=== PATIENT | male | born 1950 | race African-American/Black ===

== ENCOUNTER 2016-08-01 18:24 | Inpatient (IN) | payer OTHER ==
[~2016-08-01] VITALS: Ht 180.3 cm; Wt 59.0 kg
[~2016-08-01 18:24] MED LIST: ASPIR 8181 M1 PO; ASPIR-LOW81 MG PO; ATORVASTATIN CA40 MG PO; BACTRIM,SEPT1 TABLET PO; BAYER CHEWABLE81 MG PO; CALCIUM + D3 E1 EACH PO; CARVEDILOL6.25 MG PO; CASODEX50 MG PO; CIPROFLOXACIN500 M1 PO; COLACE100 MG PO; COREG3.125 M1 PO; COREG6.25 M1 PO; CRESTOR20 MG PO; DOCUSATE SODIU100 MG PO; DURAGESIC25 MCG TD; ENDOCET 5-3251 EACH PO; FAMOTIDINE20 MG PO; FENTANYL1 EAC5 TD; FOLIC ACID1 MG PO; FUROSEMIDE40 MG PO; GABAPENTIN600 MG PO; GLUCOTROL XL10 MG PO; GLUCOTROL5 MG PO; KLOR-CON 1010 ME1 PO; LASIX20 MG PO; LASIX40 MG PO; LEVEMIR FL100 UNIT/1 SC; LEVEMIR100 UNIT/2 SC; LIPITOR40 MG PO; LISINOPRIL2.5 MG PO; MORPHINE SULFAT15 M1 PO; MORPHINE SULFAT15 MG PO; NEURONTIN300 MG PO; NEURONTIN600 MG PO; OXAYDO5 MG PO; OXYCODONE HCL5 MG PO; OXYCODONE-ACET1 EACH PO; PANTOPRAZOLE SO40 MG PO; PERCOCET 5/31 TABLET PO; PREDNISONE5 MG PO; PROSCAR5 MG PO; PROSTATE HEALT1 EAC1 PO; PROTONIX40 MG PO; SANTYL30 GM TP; VITAMIN E100 UNIT PO; ZESTRIL2.5 MG PO
[2016-08-01 19:03] LABS: HEMATOCRIT 24.9 % (38.0-50.0); MCH 28.8 PG (29.0-34.0); MCHC 32.5 G/DL (30.0-36.0); MCV 88.6 FL (86-99); MEAN PLAT.VOLUME 9.3 uM^3 (9.0-12.4); PLATELET COUNT 180 K/uL (156-360); RBC DIS.WIDTH-CV 16.5 % (11.8-14.6); RBC DIS.WIDTH-SD 52.1 % (39-53); RED BLOOD COUNT 2.81 M/uL (4.00-5.50); WHITE BLOOD COUNT 5.7 K/uL (4.1-10.2)
[2016-08-01 19:06] LABS: EOSINOPHIL (%) 0.4 % (0-5); IMMATURE GRANULOCYTE (%) 0.5 % (0.0-0.7); IMMATURE GRANULOCYTE COUNT 0.3 K/uL; LYMPHOCYTE COUNT 0.9 K/uL (1.0-2.8); MONOCYTE (%) 10.7 % (3-12); MONOCYTE COUNT 0.6 K/uL (0-0.8); NEUTROPHIL (%) 72.1 % (45-76); NEUTROPHIL COUNT 4.1 K/uL (1.8-6.4)
[2016-08-01 19:12] LABS: CHLORIDE 101 mEq/L (99-109); POTASSIUM 4.8 mEq/L (3.7-5.4); SODIUM 133 mEq/L (136-147)
[2016-08-01 19:13] LABS: GLUCOSE 197 mg/dL (70-99)
[2016-08-01 19:15] LABS: ANION GAP 11 MEQ/L (2-14)
[2016-08-01 19:17] LABS: GFR ESTIMATE (CALCULATED) > 59 mL/min/
[2016-08-01 19:18] LABS: UREA NITROGEN (BUN) 25 mg/dL (9-23)
[2016-08-01 22:40] LABS: ADD MIUA? NO; BILIRUBIN NEGATIVE; BLOOD NEGATIVE; COLOR YELLOW ((YELLOW)); GLUCOSE (STRIP) NEGATIVE; KETONES NEGATIVE; LEUKOCYTES NEGATIVE; NITRITE NEGATIVE; PROTEIN (STRIP) 30; SPECIFIC GRAVITY 1.011 (1.000-1.030); UCUL ADDED? NO; UROBILINOGEN 0.2 MG/DL (0.2-1.0)
[2016-08-01 23:41] LABS: INTER. NORMALIZED RATIO 1.3; PROTHROMBIN TIME 13.2 (9.2-11.2); PTT 34.3 (25-32)
[2016-08-01] MEDS ORDERED: ASPIR 8181 M1 PO (23:59)
[2016-08-02] MEDS ORDERED: XTANDI40 MG PO
[2016-08-02] MEDS ORDERED: PERCOCET 5/31 TABLET PO
[2016-08-02] MEDS ORDERED: FUROSEMIDE40 MG PO (00:01)
[2016-08-02 01:08] VITALS: BP 125/76
[2016-08-02 01:25] VITALS: BP 130/78
[2016-08-02 02:10] VITALS: BP 129/76
[2016-08-02 03:05] VITALS: BP 133/76
[2016-08-02 08:09] LABS: POINT-OF-CARE METER ID UU13113702
[2016-08-02 11:50] LABS: POINT-OF-CARE METER ID UU13113702
[2016-08-02 16:34] LABS: POINT-OF-CARE METER ID UU13113702
[2016-08-02 23:46] VITALS: BP 113/65
[2016-08-03 05:39] LABS: HEMATOCRIT 24.4 % (38.0-50.0); MCH 28.8 PG (29.0-34.0); MCHC 32.8 G/DL (30.0-36.0); MCV 87.8 FL (86-99); RBC DIS.WIDTH-CV 16.4 % (11.8-14.6); RBC DIS.WIDTH-SD 53.1 % (39-53); RED BLOOD COUNT 2.78 M/uL (4.00-5.50); WHITE BLOOD COUNT 4.1 K/uL (4.1-10.2)
[2016-08-03 07:43] LABS: MEAN PLAT.VOLUME 8.3 uM^3 (9.0-12.4)
[2016-08-03 07:49] LABS: PLATELET COUNT 120 K/uL (156-360)
[2016-08-03 08:05] VITALS: BP 103/63
[2016-08-03 10:08] VITALS: BP 107/61
[2016-08-03 10:35] VITALS: BP 103/56
[2016-08-03 11:40] VITALS: BP 104/60
[2016-08-03 11:45] LABS: POINT-OF-CARE METER ID UU13113725
[2016-08-03 12:30] VITALS: BP 123/64
[2016-08-03 16:00] VITALS: BP 131/78
[2016-08-03 16:13] LABS: POINT-OF-CARE METER ID UU13113725
[2016-08-03 21:04] LABS: POINT-OF-CARE METER ID UU13113725
[2016-08-04 01:15] VITALS: BP 125/67
[2016-08-04 08:03] VITALS: BP 131/66
[2016-08-04 11:10] LABS: HEMATOCRIT 28.8 % (38.0-50.0); MCH 28.8 PG (29.0-34.0); MCHC 32.6 G/DL (30.0-36.0); MCV 88.3 FL (86-99); MEAN PLAT.VOLUME 9.2 uM^3 (9.0-12.4); PLATELET COUNT 143 K/uL (156-360); RBC DIS.WIDTH-CV 16.8 % (11.8-14.6); RBC DIS.WIDTH-SD 53.9 % (39-53); RED BLOOD COUNT 3.26 M/uL (4.00-5.50); WHITE BLOOD COUNT 4.5 K/uL (4.1-10.2)
[2016-08-04 11:39] LABS: POINT-OF-CARE METER ID UU13113725
[2016-08-04 11:40] VITALS: BP 130/72
[2016-08-04 16:19] VITALS: BP 120/74
[2016-08-04 22:58] VITALS: BP 142/76
[2016-08-05 09:22] VITALS: BP 110/62
[2016-08-05 10:14] LABS: HEMATOCRIT 27.7 % (38.0-50.0); MCH 28.7 PG (29.0-34.0); MCHC 32.5 G/DL (30.0-36.0); MCV 88.2 FL (86-99); MEAN PLAT.VOLUME 9.3 uM^3 (9.0-12.4); PLATELET COUNT 129 K/uL (156-360); RBC DIS.WIDTH-CV 16.5 % (11.8-14.6); RBC DIS.WIDTH-SD 53.1 % (39-53); RED BLOOD COUNT 3.14 M/uL (4.00-5.50)
[2016-08-05 10:35] LABS: ALKALINE PHOSPHATASE 279 IU/L (3-129); ANION GAP 6 MEQ/L (2-14); CHLORIDE 101 MEQ/L (99-109); GFR ESTIMATE (CALCULATED) > 59 mL/min/; GLUCOSE 147 mg/dL (70-99); POTASSIUM 4.9 MEQ/L (3.7-5.4); SAMPLE HEMOLYSIS CHECK 0; SAMPLE ICTERIC CHECK 0; SAMPLE LIPEMIA CHECK 0; SODIUM 132 MEQ/L (136-147); TOTAL BILIRUBIN 0.7 MG/DL (0.0-1.0); UREA NITROGEN (BUN) 27 mg/dL (9-23)
[2016-08-05 16:30] VITALS: BP 133/76
[2016-08-05 20:41] LABS: POINT-OF-CARE METER ID UU13113725
[2016-08-05 23:17] VITALS: BP 128/65
[2016-08-06 07:17] VITALS: BP 110/61
== END 2016-08-06 12:35 | disposition home health service (06) | DRG 872 ==
LOC: EME 18:24 → EXP 18:24 → EDOF 08-02 00:30 → 5EAST 08-02 00:30
PROVIDERS: Emergency Medicine; Internal Medicine
PROC: 30233N1 Transfusion of Nonautologous Red Blood Cells into Peripheral Vein, Percutaneous Approach (ICD-10-PCS; principal; 2016-08-02)
DX: A41.9 Sepsis, unspecified organism (principal); C79.51 Secondary malignant neoplasm of bone; D61.818 Other pancytopenia; J98.11 Atelectasis; N18.3 Chronic kidney disease, stage 3 (moderate); E11.22 Type 2 diabetes mellitus with diabetic chronic kidney disease; C61 Malignant neoplasm of prostate; I25.10 Atherosclerotic heart disease of native coronary artery without angina pectoris; G62.9 Polyneuropathy, unspecified; G89.4 Chronic pain syndrome; I12.9 Hypertensive chronic kidney disease with stage 1 through stage 4 chronic kidney disease, or unspecified chronic kidney disease; Z95.5 Presence of coronary angioplasty implant and graft; Z83.3 Family history of diabetes mellitus
CPT/HCPCS: 71020; 80048; 80053; 81003; 82948; 83605; 85025; 85027; 85610; 85730; 86850; 86900; 86901; 86920; 87040; 93005; 99281; 99285; J0692; J0744; J1650; J1815; J7030; J7050; P9016

== ENCOUNTER 2016-08-08 18:23 | Inpatient (IN) | payer OTHER ==
[~2016-08-08] VITALS: Ht 172.7 cm; Wt 62.0 kg
[~2016-08-08 18:23] MED LIST changes: +XTANDI40 MG PO
[2016-08-08 18:53] LABS: EOSINOPHIL (%) 0.4 % (0-5); HEMATOCRIT 29.1 % (38.0-50.0); IMMATURE GRANULOCYTE (%) 0.2 % (0.0-0.7); IMMATURE GRANULOCYTE COUNT 0.1 K/uL; LYMPHOCYTE COUNT 0.7 K/uL (1.0-2.8); MCH 28.7 PG (29.0-34.0); MCV 87.1 FL (86-99); MEAN PLAT.VOLUME 9.1 uM^3 (9.0-12.4); MONOCYTE (%) 11.3 % (3-12); MONOCYTE COUNT 0.6 K/uL (0-0.8); NEUTROPHIL (%) 74.9 % (45-76); PLATELET COUNT 137 K/uL (156-360); RBC DIS.WIDTH-SD 50.3 % (39-53); RED BLOOD COUNT 3.34 M/uL (4.00-5.50); WHITE BLOOD COUNT 5.3 K/uL (4.1-10.2)
[2016-08-08 19:05] LABS: INTER. NORMALIZED RATIO 1.2; PTT 30.2 (25-32)
[2016-08-08 19:08] LABS: AMYLASE 44 IU/L (1-118); CHLORIDE 100 mEq/L (99-109); POTASSIUM 4.8 mEq/L (3.7-5.4); SODIUM 132 mEq/L (136-147)
[2016-08-08 19:10] LABS: GLUCOSE 238 mg/dL (70-99)
[2016-08-08 19:12] LABS: ANION GAP 12 MEQ/L (2-14)
[2016-08-08 19:13] LABS: SERUM ETHYL ALCOHOL < 10 mg/dL
[2016-08-08 19:14] LABS: GFR ESTIMATE (CALCULATED) > 59 mL/min/
[2016-08-08 19:15] LABS: UREA NITROGEN (BUN) 26 mg/dL (9-23)
[2016-08-08 19:17] LABS: LIPASE 15 U/L (1.0-51.0)
[2016-08-08 19:19] LABS: TROP-I INTERPRETATION NEGATIVE; TROPONIN-I 0.04 ng/mL (0.0-0.30)
[2016-08-08] MEDS ORDERED: AUGMENTIN875 MG PO (19:21)
[2016-08-08 23:03] VITALS: BP 139/65
[2016-08-09 05:45] LABS: POINT-OF-CARE METER ID UU13113725
[2016-08-09 07:11] VITALS: BP 137/75
[2016-08-09 11:34] LABS: POINT-OF-CARE METER ID UU13113725
[2016-08-09 15:27] VITALS: BP 114/61
[2016-08-09 22:17] VITALS: BP 129/58
[2016-08-10 05:38] LABS: POINT-OF-CARE METER ID UU13113725
[2016-08-10 07:39] VITALS: BP 112/62
== END 2016-08-10 17:15 | disposition home health service (06) | DRG 74 ==
LOC: EME 18:23 → 5EAST 20:30 → EDOF 20:30 → 5EAST 22:30
PROVIDERS: Emergency Medicine; Internal Medicine
DX: E11.40 Type 2 diabetes mellitus with diabetic neuropathy, unspecified (principal); C79.51 Secondary malignant neoplasm of bone; F05 Delirium due to known physiological condition; I50.22 Chronic systolic (congestive) heart failure; C61 Malignant neoplasm of prostate; D63.1 Anemia in chronic kidney disease; N18.3 Chronic kidney disease, stage 3 (moderate); M62.81 Muscle weakness (generalized); E11.22 Type 2 diabetes mellitus with diabetic chronic kidney disease; I12.9 Hypertensive chronic kidney disease with stage 1 through stage 4 chronic kidney disease, or unspecified chronic kidney disease; G89.29 Other chronic pain; R62.7 Adult failure to thrive; R97.21 Rising PSA following treatment for malignant neoplasm of prostate; I25.10 Atherosclerotic heart disease of native coronary artery without angina pectoris; Z91.19 Patient's noncompliance with other medical treatment and regimen; Z68.20 Body mass index [BMI] 20.0-20.9, adult; Z95.5 Presence of coronary angioplasty implant and graft; Z95.0 Presence of cardiac pacemaker
CPT/HCPCS: 36415; 70450; 72129; 72132; 80048; 80053; 81003; 82150; 82607 GA; 82728; 82746 GA; 82948; 83540; 83690; 84466; 84484; 85007; 85025; 85025 91; 85610; 85730; 86850; 86900; 86901; 87086; 93005; 99281; 99285; G0103; G0480; J1815

== ENCOUNTER 2016-10-09 18:38 | Inpatient (IN) | payer OTHER ==
[~2016-10-09] VITALS: Ht 170.2 cm; Wt 63.0 kg
[~2016-10-09 18:38] MED LIST changes: +AUGMENTIN875 MG PO
[2016-10-09 20:20] LABS: EOSINOPHIL (%) 0.3 % (0-5); HEMATOCRIT 23.7 % (38.0-50.0); IMMATURE GRANULOCYTE (%) 0.3 % (0.0-0.7); INSTRUMENT ABS NEUTROPHIL CT 2.9 K/uL; LYMPHOCYTE COUNT 0.6 K/uL (1.0-2.8); MCH 28.5 PG (29.0-34.0); MCHC 32.5 G/DL (30.0-36.0); MCV 87.8 FL (86-99); MEAN PLAT.VOLUME 9.3 uM^3 (9.0-12.4); MONOCYTE COUNT 0.3 K/uL (0-0.8); NEUTROPHIL (%) 76.5 % (45-76); NEUTROPHIL COUNT 2.9 K/uL (1.8-6.4); PLATELET COUNT 127 K/uL (156-360); RBC DIS.WIDTH-CV 16.9 % (11.8-14.6); RBC DIS.WIDTH-SD 53.9 % (39-53); WHITE BLOOD COUNT 3.8 K/uL (4.1-10.2)
[2016-10-09 20:27] LABS: CHLORIDE 96 mEq/L (99-109); POTASSIUM 4.5 mEq/L (3.7-5.4); SODIUM 131 mEq/L (136-147)
[2016-10-09 20:29] LABS: GLUCOSE 198 mg/dL (70-99)
[2016-10-09 20:30] LABS: ANION GAP 13 MEQ/L (2-14)
[2016-10-09 20:31] LABS: TOTAL BILIRUBIN 0.7 mg/dL (0.0-1.0)
[2016-10-09 20:32] LABS: ALKALINE PHOSPHATASE 251 IU/L (3-129)
[2016-10-09 20:33] LABS: GFR ESTIMATE (CALCULATED) > 59 mL/min/
[2016-10-09 20:34] LABS: UREA NITROGEN (BUN) 29 mg/dL (9-23)
[2016-10-09] MEDS ORDERED: ZOFRAN4 MG PO (22:48)
[2016-10-09] MEDS ORDERED: MIRALAX255 GM PO (22:49)
[2016-10-10] VITALS (13 sets, daily range): BP systolic 104–145; BP diastolic 56–94
[2016-10-10 04:33] LABS: ADD MIUA? NO; BILIRUBIN NEGATIVE; BLOOD NEGATIVE; COLOR YELLOW ((YELLOW)); GLUCOSE (STRIP) NEGATIVE; KETONES NEGATIVE; LEUKOCYTES NEGATIVE; NITRITE NEGATIVE; PROTEIN (STRIP) NEGATIVE; UCUL ADDED? NO; UROBILINOGEN 0.2 MG/DL (0.2-1.0)
[2016-10-10 05:56] LABS: ALKALINE PHOSPHATASE 207 IU/L (3-129); ANION GAP 9 MEQ/L (2-14); CHLORIDE 102 MEQ/L (99-109); GFR ESTIMATE (CALCULATED) > 59 mL/min/; GLUCOSE 136 mg/dL (70-99); POTASSIUM 4.2 MEQ/L (3.7-5.4); SAMPLE HEMOLYSIS CHECK 0; SAMPLE ICTERIC CHECK 0; SAMPLE LIPEMIA CHECK 0; SODIUM 134 MEQ/L (136-147); UREA NITROGEN (BUN) 24 mg/dL (9-23)
[2016-10-10 05:59] LABS: TOTAL BILIRUBIN 0.6 MG/DL (0.0-1.0)
[2016-10-10 06:15] LABS: HEMATOCRIT 20.9 % (38.0-50.0); MCH 28.3 PG (29.0-34.0); MCHC 31.6 G/DL (30.0-36.0); MCV 89.7 FL (86-99); MEAN PLAT.VOLUME 9.5 uM^3 (9.0-12.4); PLATELET COUNT 107 K/uL (156-360); RBC DIS.WIDTH-CV 16.9 % (11.8-14.6); RBC DIS.WIDTH-SD 55.2 % (39-53); RED BLOOD COUNT 2.33 M/uL (4.00-5.50); WHITE BLOOD COUNT 2.8 K/uL (4.1-10.2)
[2016-10-10 16:20] LABS: POINT-OF-CARE METER ID UU13113831
[2016-10-10 20:48] LABS: POINT-OF-CARE METER ID UU13113831
[2016-10-11 03:45] VITALS: BP 137/92
[2016-10-11 07:12] LABS: HEMATOCRIT 29.9 % (38.0-50.0); MCH 28.7 PG (29.0-34.0); MCHC 32.4 G/DL (30.0-36.0); MCV 88.5 FL (86-99); MEAN PLAT.VOLUME 9.7 uM^3 (9.0-12.4); PLATELET COUNT 128 K/uL (156-360); RBC DIS.WIDTH-CV 16.7 % (11.8-14.6); RBC DIS.WIDTH-SD 53.5 % (39-53)
[2016-10-11 07:17] LABS: RED BLOOD COUNT 3.38 M/uL (4.00-5.50); WHITE BLOOD COUNT 4.5 K/uL (4.1-10.2)
[2016-10-11 07:18] LABS: ANION GAP 8 MEQ/L (2-14); CHLORIDE 103 MEQ/L (99-109); GFR ESTIMATE (CALCULATED) > 59 mL/min/; POTASSIUM 4.4 MEQ/L (3.7-5.4); SAMPLE HEMOLYSIS CHECK 0; SAMPLE ICTERIC CHECK 0; SAMPLE LIPEMIA CHECK 0; SODIUM 133 MEQ/L (136-147); UREA NITROGEN (BUN) 21 mg/dL (9-23)
[2016-10-11 07:20] LABS: GLUCOSE 49 mg/dL (70-99)
[2016-10-11 07:33] VITALS: BP 131/78
[2016-10-11 08:15] LABS: POINT-OF-CARE METER ID UU13113831
[2016-10-11 10:43] VITALS: BP 115/76
[2016-10-11 12:24] LABS: POINT-OF-CARE METER ID UU13113831
[2016-10-11 16:11] VITALS: BP 134/77
[2016-10-11 17:34] LABS: POINT-OF-CARE METER ID UU13113700
[2016-10-11 19:29] VITALS: BP 142/86
[2016-10-11 22:54] VITALS: BP 119/69
[2016-10-12 04:11] VITALS: BP 107/60
[2016-10-12 07:52] LABS: HEMATOCRIT 29.2 % (38.0-50.0); MCH 28.6 PG (29.0-34.0); MCHC 32.5 G/DL (30.0-36.0); MEAN PLAT.VOLUME 9.5 uM^3 (9.0-12.4); PLATELET COUNT 115 K/uL (156-360); RBC DIS.WIDTH-CV 16.2 % (11.8-14.6); RBC DIS.WIDTH-SD 52.8 % (39-53); RED BLOOD COUNT 3.32 M/uL (4.00-5.50); WHITE BLOOD COUNT 3.8 K/uL (4.1-10.2)
[2016-10-12 08:05] VITALS: BP 116/67
[2016-10-12 08:52] LABS: ANION GAP 9 MEQ/L (2-14); CHLORIDE 99 MEQ/L (99-109); GFR ESTIMATE (CALCULATED) > 59 mL/min/; GLUCOSE 64 mg/dL (70-99); POTASSIUM 4.9 MEQ/L (3.7-5.4); SAMPLE HEMOLYSIS CHECK 0; SAMPLE ICTERIC CHECK 0; SAMPLE LIPEMIA CHECK 0; SODIUM 130 MEQ/L (136-147); UREA NITROGEN (BUN) 23 mg/dL (9-23)
[2016-10-12 09:19] LABS: POINT-OF-CARE METER ID UU13113831
[2016-10-12 10:21] LABS: POINT-OF-CARE METER ID UU13113700
[2016-10-12 11:52] VITALS: BP 116/66
[2016-10-12 12:35] LABS: POINT-OF-CARE METER ID UU13113700
[2016-10-12] MEDS ORDERED: TAMSULOSIN HCL0.4 MG PO (14:44)
== END 2016-10-12 18:16 | disposition home or self-care (01) | DRG 683 ==
LOC: EME 18:38 → EDOF 22:32 → 5WEST 22:32 → EDOF 22:48 → 5WEST 10-10
PROVIDERS: Emergency Medicine; Hospitalist; Internal Medicine; Nurse Practitioner Family
PROC: 30233N1 Transfusion of Nonautologous Red Blood Cells into Peripheral Vein, Percutaneous Approach (ICD-10-PCS; principal; 2016-10-10)
DX: N17.9 Acute kidney failure, unspecified (principal); C79.51 Secondary malignant neoplasm of bone; D61.818 Other pancytopenia; R64 Cachexia; I13.0 Hypertensive heart and chronic kidney disease with heart failure and stage 1 through stage 4 chronic kidney disease, or unspecified chronic kidney disease; E11.22 Type 2 diabetes mellitus with diabetic chronic kidney disease; I50.9 Heart failure, unspecified; E87.1 Hypo-osmolality and hyponatremia; L97.411 Non-pressure chronic ulcer of right heel and midfoot limited to breakdown of skin; C61 Malignant neoplasm of prostate; N18.3 Chronic kidney disease, stage 3 (moderate); E86.0 Dehydration; Z19.2 Hormone resistant malignancy status; D63.8 Anemia in other chronic diseases classified elsewhere; Z91.14 Patient's other noncompliance with medication regimen; R62.7 Adult failure to thrive; I25.10 Atherosclerotic heart disease of native coronary artery without angina pectoris; Z95.1 Presence of aortocoronary bypass graft; W19.XXXA Unspecified fall, initial encounter; M54.5 Low back pain; K21.9 Gastro-esophageal reflux disease without esophagitis; Z95.0 Presence of cardiac pacemaker; Z79.4 Long term (current) use of insulin; R26.2 Difficulty in walking, not elsewhere classified; G89.29 Other chronic pain; E11.621 Type 2 diabetes mellitus with foot ulcer; E11.42 Type 2 diabetes mellitus with diabetic polyneuropathy; N39.490 Overflow incontinence; N39.41 Urge incontinence; Z86.73 Personal history of transient ischemic attack (TIA), and cerebral infarction without residual deficits; I25.2 Old myocardial infarction; Z68.21 Body mass index [BMI] 21.0-21.9, adult
CPT/HCPCS: 71010; 72220; 80048; 80053; 81003; 82948; 83605; 85025; 85027; 86900; 86901; 86920; 97530 GO; 99281; 99285; G0378; G8978 GP CI; G8979 GP CH; J1644; J7030; P9016

== ENCOUNTER 2016-10-19 13:46 | Observation (INO) | payer OTHER ==
[~2016-10-19] VITALS: Ht 170.2 cm; Wt 62.0 kg
[~2016-10-19 13:46] MED LIST changes: +MIRALAX255 GM PO; +TAMSULOSIN HCL0.4 MG PO; +ZOFRAN4 MG PO
[2016-10-19 14:30] LABS: HEMATOCRIT 30.9 % (38.0-50.0); MCH 28.5 PG (29.0-34.0); MEAN PLAT.VOLUME 9.9 uM^3 (9.0-12.4); PLATELET COUNT 111 K/uL (156-360); RBC DIS.WIDTH-CV 16.1 % (11.8-14.6); RBC DIS.WIDTH-SD 52.7 % (39-53); RED BLOOD COUNT 3.47 M/uL (4.00-5.50); WHITE BLOOD COUNT 3.8 K/uL (4.1-10.2)
[2016-10-19 14:40] LABS: CHLORIDE 100 mEq/L (99-109); SODIUM 134 mEq/L (136-147)
[2016-10-19 14:42] LABS: GLUCOSE 131 mg/dL (70-99)
[2016-10-19 14:43] LABS: ANION GAP 13 MEQ/L (2-14)
[2016-10-19 14:46] LABS: GFR ESTIMATE (CALCULATED) > 59 mL/min/
[2016-10-19 14:47] LABS: UREA NITROGEN (BUN) 32 mg/dL (9-23)
[2016-10-19] MEDS ORDERED: TAMSULOSIN HCL0.4 MG PO (15:26)
[2016-10-19 16:48] LABS: EOSINOPHIL (%) 2.5 % (0-5); EOSINOPHIL COUNT 0.1 K/uL (0-0.3); HEMATOCRIT 29.2 % (38.0-50.0); IMMATURE GRANULOCYTE (%) 0.5 % (0.0-0.7); INSTRUMENT ABS NEUTROPHIL CT 2.7 K/uL; LYMPHOCYTE COUNT 0.8 K/uL (1.0-2.8); MCH 28.9 PG (29.0-34.0); MCHC 32.5 G/DL (30.0-36.0); MCV 88.8 FL (86-99); MONOCYTE (%) 8.8 % (3-12); MONOCYTE COUNT 0.4 K/uL (0-0.8); NEUTROPHIL (%) 67.8 % (45-76); NEUTROPHIL COUNT 2.7 K/uL (1.8-6.4); RBC DIS.WIDTH-CV 16.1 % (11.8-14.6); RBC DIS.WIDTH-SD 52.2 % (39-53); RED BLOOD COUNT 3.29 M/uL (4.00-5.50)
[2016-10-19 18:06] LABS: PLAT.SUFFICIENCY DECREASED; PLATELET CLUMPS PRESENT - PLATELET COUNTS APPEARS DECREASED; PLATELET COUNT UNABLE TO REPORT K/uL (156-360)
[2016-10-19 20:17] VITALS: BP 135/74
[2016-10-19 23:18] LABS: POINT-OF-CARE METER ID UU13113831
[2016-10-20 00:06] VITALS: BP 123/73
[2016-10-20 00:50] LABS: HEMATOCRIT 28.5 % (38.0-50.0); MCV 89.9 FL (86-99)
[2016-10-20 04:00] VITALS: BP 136/83
[2016-10-20 08:25] LABS: HEMATOCRIT 29.1 % (38.0-50.0); MCH 28.8 PG (29.0-34.0); MCHC 31.6 G/DL (30.0-36.0); MCV 91.2 FL (86-99); MEAN PLAT.VOLUME 9.8 uM^3 (9.0-12.4); RBC DIS.WIDTH-CV 16.4 % (11.8-14.6); RBC DIS.WIDTH-SD 54.9 % (39-53); RED BLOOD COUNT 3.19 M/uL (4.00-5.50); WHITE BLOOD COUNT 3.1 K/uL (4.1-10.2)
[2016-10-20 08:39] LABS: PLATELET COUNT 95 K/uL (156-360)
[2016-10-20 08:44] LABS: ANION GAP 7 MEQ/L (2-14); CHLORIDE 102 MEQ/L (99-109); GFR ESTIMATE (CALCULATED) > 59 mL/min/; POTASSIUM 5.2 MEQ/L (3.7-5.4); SAMPLE HEMOLYSIS CHECK 0; SAMPLE ICTERIC CHECK 0; SAMPLE LIPEMIA CHECK 0; SODIUM 134 MEQ/L (136-147); UREA NITROGEN (BUN) 25 mg/dL (9-23)
[2016-10-20 08:49] LABS: GLUCOSE 92 mg/dL (70-99)
[2016-10-20 09:19] VITALS: BP 113/77
[2016-10-20 11:19] VITALS: BP 129/76
[2016-10-20 15:02] VITALS: BP 117/56
[2016-10-20 16:10] LABS: HEMATOCRIT 28.9 % (38.0-50.0); MCV 91.2 FL (86-99)
== END 2016-10-20 16:56 | disposition home health service (06) ==
LOC: EME 13:46 → EDOF 17:13 → 5WEST 19:57
PROVIDERS: Internal Medicine; Physician Assistant
DX: K92.2 Gastrointestinal hemorrhage, unspecified (principal); D64.9 Anemia, unspecified; E86.0 Dehydration; I12.9 Hypertensive chronic kidney disease with stage 1 through stage 4 chronic kidney disease, or unspecified chronic kidney disease; E11.22 Type 2 diabetes mellitus with diabetic chronic kidney disease; N18.3 Chronic kidney disease, stage 3 (moderate); D63.1 Anemia in chronic kidney disease; E11.65 Type 2 diabetes mellitus with hyperglycemia; I25.10 Atherosclerotic heart disease of native coronary artery without angina pectoris; Z95.1 Presence of aortocoronary bypass graft; K21.9 Gastro-esophageal reflux disease without esophagitis; C61 Malignant neoplasm of prostate; C79.9 Secondary malignant neoplasm of unspecified site; D61.818 Other pancytopenia; I25.5 Ischemic cardiomyopathy
CPT/HCPCS: 80048; 82272; 82948; 85014; 85018; 85025; 85027; 86900; 86901; 99281; 99285; C9113; G0378; G8978 GP CJ; G8979 GP CH; J1815; J2270; J7030

== ENCOUNTER 2016-10-21 22:52 | Inpatient (IN) | payer OTHER ==
[~2016-10-21] VITALS: Ht 172.7 cm; Wt 61.4 kg
[2016-10-21 23:47] LABS: EOSINOPHIL (%) 0.2 % (0-5); HEMATOCRIT 27.7 % (38.0-50.0); IMMATURE GRANULOCYTE (%) 1.1 % (0.0-0.7); IMMATURE GRANULOCYTE COUNT 0.1 K/uL; INSTRUMENT ABS NEUTROPHIL CT 3.4 K/uL; LYMPHOCYTE COUNT 0.5 K/uL (1.0-2.8); MCH 28.9 PG (29.0-34.0); MCHC 32.9 G/DL (30.0-36.0); MCV 87.9 FL (86-99); MEAN PLAT.VOLUME 9.5 uM^3 (9.0-12.4); MONOCYTE (%) 8.8 % (3-12); MONOCYTE COUNT 0.4 K/uL (0-0.8); NEUTROPHIL (%) 77.7 % (45-76); NEUTROPHIL COUNT 3.4 K/uL (1.8-6.4); PLATELET COUNT 113 K/uL (156-360); RBC DIS.WIDTH-CV 16.2 % (11.8-14.6); RBC DIS.WIDTH-SD 51.5 % (39-53); RED BLOOD COUNT 3.15 M/uL (4.00-5.50)
[2016-10-21 23:48] LABS: WHITE BLOOD COUNT 4.4 K/uL (4.1-10.2)
[2016-10-21 23:54] LABS: INTER. NORMALIZED RATIO 1.3; PTT 32.9 (25-32)
[2016-10-21 23:55] LABS: CHLORIDE 100 mEq/L (99-109); POTASSIUM 4.7 mEq/L (3.7-5.4); SODIUM 131 mEq/L (136-147)
[2016-10-21 23:57] LABS: GLUCOSE 246 mg/dL (70-99)
[2016-10-21 23:58] LABS: ANION GAP 9 MEQ/L (2-14)
[2016-10-22] LABS: GFR ESTIMATE (CALCULATED) > 59 mL/min/
[2016-10-22 00:01] LABS: UREA NITROGEN (BUN) 24 mg/dL (9-23)
[2016-10-22 00:02] LABS: TROP-I INTERPRETATION NEGATIVE; TROPONIN-I 0.01 ng/mL (0.0-0.30)
[2016-10-22 00:14] LABS: ADD MIUA? YES; BILIRUBIN NEGATIVE; BLOOD MODERATE; COLOR YELLOW ((YELLOW)); GLUCOSE (STRIP) 50; KETONES NEGATIVE; LEUKOCYTES NEGATIVE; NITRITE NEGATIVE; PROTEIN (STRIP) 100; SPECIFIC GRAVITY 1.014 (1.000-1.030); UROBILINOGEN 0.2 MG/DL (0.2-1.0)
[2016-10-22 00:22] LABS: BACTERIA 1+ /HPF; EPITHELIAL CELLS NONE SEEN /HPF; MUCUS TRACE /LPF; RED BLOOD CELLS TNTC /HPF (0-5); UCUL ADDED? NO; WHITE BLOOD CELLS 0-5 /HPF (0-5)
[2016-10-22 01:32] LABS: HDL CHOLESTEROL 39 MG/DL (Desirable>=40); LDL CHOLESTEROL 89 mg/dL (Desirable<100); NON-HDL CHOLESTEROL 104 mg/dL (Desirable<160); TOTAL CHOLESTEROL 143 mg/dL (Desirable<200); TRIGLYCERIDES 73 MG/DL (Normal: <150)
[2016-10-22 05:26] VITALS: BP 117/66
[2016-10-22 06:48] LABS: Estimated Average Glucose 148 mg/dL (70-123)
[2016-10-22 07:23] LABS: HEMOGLOBIN A1c (GLYCOHEMOGLOB) 6.8 % HGB (Below 5.7)
[2016-10-22 10:08] LABS: ALKALINE PHOSPHATASE 320 IU/L (3-129); ANION GAP 9 MEQ/L (2-14); CHLORIDE 98 MEQ/L (99-109); GFR ESTIMATE (CALCULATED) > 59 mL/min/; GLUCOSE 132 mg/dL (70-99); POTASSIUM 4.5 MEQ/L (3.7-5.4); SAMPLE HEMOLYSIS CHECK 0; SAMPLE ICTERIC CHECK 0; SAMPLE LIPEMIA CHECK 0; SODIUM 130 MEQ/L (136-147); UREA NITROGEN (BUN) 20 mg/dL (9-23)
[2016-10-22 11:29] VITALS: BP 118/66
[2016-10-22 15:13] VITALS: BP 123/68
[2016-10-22 16:04] LABS: INTER. NORMALIZED RATIO 1.3; PROTHROMBIN TIME 13.4 (9.2-11.2)
[2016-10-22 17:45] VITALS: BP 126/65
[2016-10-22 23:33] VITALS: BP 131/86
[2016-10-22 23:55] LABS: INTER. NORMALIZED RATIO 1.3; PROTHROMBIN TIME 13.5 (9.2-11.2); PTT 57.1 (25-32)
[2016-10-23 06:57] VITALS: BP 116/66
[2016-10-23 07:00] LABS: HEMATOCRIT 24.6 % (38.0-50.0); MCHC 32.9 G/DL (30.0-36.0); MCV 88.2 FL (86-99); MEAN PLAT.VOLUME 10.2 uM^3 (9.0-12.4); PLATELET COUNT 114 K/uL (156-360); RBC DIS.WIDTH-CV 16.2 % (11.8-14.6); RBC DIS.WIDTH-SD 51.8 % (39-53); RED BLOOD COUNT 2.79 M/uL (4.00-5.50); WHITE BLOOD COUNT 4.7 K/uL (4.1-10.2)
[2016-10-23 07:23] LABS: INTER. NORMALIZED RATIO 1.3; PROTHROMBIN TIME 12.9 (9.2-11.2); PTT 63.3 (25-32)
[2016-10-23 07:24] LABS: ANION GAP 11 MEQ/L (2-14); CHLORIDE 100 MEQ/L (99-109); GFR ESTIMATE (CALCULATED) > 59 mL/min/; GLUCOSE 148 mg/dL (70-99); POTASSIUM 4.2 MEQ/L (3.7-5.4); SAMPLE HEMOLYSIS CHECK 0; SAMPLE ICTERIC CHECK 0; SAMPLE LIPEMIA CHECK 0; SODIUM 133 MEQ/L (136-147); UREA NITROGEN (BUN) 19 mg/dL (9-23)
[2016-10-23 11:04] LABS: FERRITIN > 1500 NG/ML (22-322)
[2016-10-23 14:59] VITALS: BP 121/77
[2016-10-23 23:20] VITALS: BP 103/68
[2016-10-24 06:53] LABS: HEMATOCRIT 25.9 % (38.0-50.0); MCH 28.8 PG (29.0-34.0); MCHC 32.4 G/DL (30.0-36.0); MCV 88.7 FL (86-99); MEAN PLAT.VOLUME 9.9 uM^3 (9.0-12.4); PLATELET COUNT 127 K/uL (156-360); RBC DIS.WIDTH-CV 16.5 % (11.8-14.6); RBC DIS.WIDTH-SD 53.6 % (39-53); RED BLOOD COUNT 2.92 M/uL (4.00-5.50); WHITE BLOOD COUNT 4.7 K/uL (4.1-10.2)
[2016-10-24 07:44] LABS: INTERNAL CONTROL VALID? YES
[2016-10-24 08:13] VITALS: BP 114/77
[2016-10-24 16:01] VITALS: BP 128/77
[2016-10-24 23:25] VITALS: BP 104/62
[2016-10-25 07:28] LABS: ANION GAP 8 MEQ/L (2-14); CHLORIDE 100 MEQ/L (99-109); GFR ESTIMATE (CALCULATED) > 59 mL/min/; GLUCOSE 131 mg/dL (70-99); POTASSIUM 3.8 MEQ/L (3.7-5.4); SAMPLE HEMOLYSIS CHECK 0; SAMPLE ICTERIC CHECK 0; SAMPLE LIPEMIA CHECK 0; SODIUM 132 MEQ/L (136-147); UREA NITROGEN (BUN) 19 mg/dL (9-23)
[2016-10-25 07:49] VITALS: BP 116/71
[2016-10-25 23:06] VITALS: BP 109/63
[2016-10-26 06:54] LABS: HEMATOCRIT 26.3 % (38.0-50.0); MCH 28.4 PG (29.0-34.0); MCHC 31.9 G/DL (30.0-36.0); MCV 88.9 FL (86-99); MEAN PLAT.VOLUME 9.9 uM^3 (9.0-12.4); PLATELET COUNT 112 K/uL (156-360); RBC DIS.WIDTH-CV 16.3 % (11.8-14.6); RBC DIS.WIDTH-SD 53.6 % (39-53); RED BLOOD COUNT 2.96 M/uL (4.00-5.50)
[2016-10-26 06:56] LABS: WHITE BLOOD COUNT 3.2 K/uL (4.1-10.2)
[2016-10-26 07:27] VITALS: BP 120/67
[2016-10-26 15:15] VITALS: BP 122/65
[2016-10-26 23:12] VITALS: BP 133/75
[2016-10-27 06:54] VITALS: BP 117/71
[2016-10-27 16:54] VITALS: BP 117/72
[2016-10-27 22:38] VITALS: BP 117/72
[2016-10-28 07:15] VITALS: BP 106/72
[2016-10-28 21:49] LABS: AP Bone Isoenzyme 20 % (28-66); AP Intestine Isoenzyme 0 % (1-24); AP Liver Isoenzyme 49 % (25-69); AP Macrohepatic Isoenzyme 31 % (<=0); AP Placental Isoenzyme 0 % (<=0); Alkaline Phosphatase, Total 293 U/L (40-115)
[2016-10-28 23:38] VITALS: BP 133/80
[2016-10-29 06:30] LABS: HEMATOCRIT 24.9 % (38.0-50.0); MCH 28.4 PG (29.0-34.0); MCHC 32.5 G/DL (30.0-36.0); MCV 87.4 FL (86-99); MEAN PLAT.VOLUME 9.4 uM^3 (9.0-12.4); PLATELET COUNT 128 K/uL (156-360); RBC DIS.WIDTH-CV 16.8 % (11.8-14.6); RBC DIS.WIDTH-SD 53.6 % (39-53); RED BLOOD COUNT 2.85 M/uL (4.00-5.50); WHITE BLOOD COUNT 4.1 K/uL (4.1-10.2)
[2016-10-29 07:14] VITALS: BP 120/73
[2016-10-29 15:10] VITALS: BP 126/82
[2016-10-29 23:10] VITALS: BP 118/64
[2016-10-30 07:35] VITALS: BP 118/72
[2016-10-30 10:10] LABS: HBSG INDEX 0.22; HPCA INDEX 0.11
[2016-10-30 10:11] LABS: ANTI-HEPATITIS A VIRUS (IGM) Nonreactive; HAV INDEX 0.59
[2016-10-30 10:12] LABS: ANTI-HEPATITIS B CORE (IGM) Nonreactive; HBC IgM INDEX 0.07
[2016-10-30 15:30] VITALS: BP 123/70
[2016-10-30 20:02] VITALS: BP 119/59
[2016-10-30 23:56] VITALS: BP 116/64
[2016-10-31 06:39] LABS: HEMATOCRIT 26.4 % (38.0-50.0); MCH 28.9 PG (29.0-34.0); MCHC 32.6 G/DL (30.0-36.0); MCV 88.6 FL (86-99); MEAN PLAT.VOLUME 9.4 uM^3 (9.0-12.4); PLATELET COUNT 134 K/uL (156-360); RBC DIS.WIDTH-CV 16.9 % (11.8-14.6); RBC DIS.WIDTH-SD 54.5 % (39-53); RED BLOOD COUNT 2.98 M/uL (4.00-5.50); WHITE BLOOD COUNT 3.8 K/uL (4.1-10.2)
[2016-10-31 07:28] VITALS: BP 113/62
[2016-10-31] MEDS ORDERED: LOVENOX100 MG/1 M SC (15:33)
[2016-10-31] MEDS ORDERED: Chronulac,Cephulac,E PO (15:33)
[2016-10-31 15:59] VITALS: BP 126/81
[2016-11-01 13:18] LABS: ALBUMIN 3.68 G/DL (3.6-4.9); ALBUMIN PERCENT 56.6 %; ALPHA-1 PERCENT 4.6 %; ALPHA-2 GLOBULIN 0.83 G/DL (0.45-0.85); ALPHA-2 PERCENT 12.8 %; BETA PERCENT 11.4 %; GAMMA PERCENT 14.6 %; INTERPRETATION: Normal study.
== END 2016-10-31 18:01 | disposition home or self-care (01) | DRG 299 ==
LOC: EME 22:52 → EDOF 10-22 04:00 → 5WEST 10-22 05:02 → 5EAST 10-22 14:11 → 5WEST 10-22 14:11 → 5EAST 10-22 17:30
PROVIDERS: Emergency Medicine; Hospitalist; Internal Medicine; Specialist
DX: I82.412 Acute embolism and thrombosis of left femoral vein (principal); G93.41 Metabolic encephalopathy; L89.153 Pressure ulcer of sacral region, stage 3; F05 Delirium due to known physiological condition; C79.51 Secondary malignant neoplasm of bone; F33.9 Major depressive disorder, recurrent, unspecified; R64 Cachexia; L97.411 Non-pressure chronic ulcer of right heel and midfoot limited to breakdown of skin; I13.0 Hypertensive heart and chronic kidney disease with heart failure and stage 1 through stage 4 chronic kidney disease, or unspecified chronic kidney disease; I50.22 Chronic systolic (congestive) heart failure; J98.11 Atelectasis; J90 Pleural effusion, not elsewhere classified; K72.90 Hepatic failure, unspecified without coma; I82.812 Embolism and thrombosis of superficial veins of left lower extremity; C61 Malignant neoplasm of prostate; I25.10 Atherosclerotic heart disease of native coronary artery without angina pectoris; E11.22 Type 2 diabetes mellitus with diabetic chronic kidney disease; N18.3 Chronic kidney disease, stage 3 (moderate); K21.9 Gastro-esophageal reflux disease without esophagitis; R33.9 Retention of urine, unspecified; I25.5 Ischemic cardiomyopathy; R62.7 Adult failure to thrive; E11.621 Type 2 diabetes mellitus with foot ulcer; L89.612 Pressure ulcer of right heel, stage 2; E11.42 Type 2 diabetes mellitus with diabetic polyneuropathy; M15.0 Primary generalized (osteo)arthritis; R16.0 Hepatomegaly, not elsewhere classified; Z66 Do not resuscitate; Z51.5 Encounter for palliative care; K59.00 Constipation, unspecified; D63.8 Anemia in other chronic diseases classified elsewhere; D69.6 Thrombocytopenia, unspecified; Z95.810 Presence of automatic (implantable) cardiac defibrillator; Z68.21 Body mass index [BMI] 21.0-21.9, adult; Z95.5 Presence of coronary angioplasty implant and graft; Z83.3 Family history of diabetes mellitus
CPT/HCPCS: 70450; 71010; 71250; 71260; 74176; 76705; 80048; 80053; 80061; 80074; 81003; 81256 90; 82140; 82272; 82607; 82728; 82977; 83036; 84075 90; 84080 90; 84165; 84466; 84484; 85025; 85027; 85610; 85730; 86256 90; 92610 GN; 93005; 93970; 93975; 99281; 99285; G0103; G8996 GN CH; G8997 GN CH; G8998 GN CH; J0696; J1650; J7050; S0028

== ENCOUNTER 2016-11-07 18:50 | Emergency (ER) | payer OTHER ==
[~2016-11-07] VITALS: Ht 170.2 cm; Wt 63.2 kg
[~2016-11-07 18:50] MED LIST changes: +Chronulac,Cephulac,E PO; +LOVENOX100 MG/1 M SC
[2016-11-07 20:04] LABS: ADD MIUA? NO; BILIRUBIN NEGATIVE; BLOOD NEGATIVE; COLOR YELLOW ((YELLOW)); GLUCOSE (STRIP) NEGATIVE; KETONES NEGATIVE; LEUKOCYTES NEGATIVE; NITRITE NEGATIVE; PROTEIN (STRIP) NEGATIVE; SPECIFIC GRAVITY 1.014 (1.000-1.030); UCUL ADDED? NO; UROBILINOGEN 0.2 MG/DL (0.2-1.0)
[2016-11-07 20:20] LABS: CHLORIDE 101 mEq/L (99-109); POTASSIUM 4.8 mEq/L (3.7-5.4); SODIUM 129 mEq/L (136-147)
[2016-11-07 20:22] LABS: GLUCOSE 221 mg/dL (70-99)
[2016-11-07 20:23] LABS: ANION GAP 11 MEQ/L (2-14)
[2016-11-07 20:26] LABS: GFR ESTIMATE (CALCULATED) > 59 mL/min/; UREA NITROGEN (BUN) 36 mg/dL (9-23)
[2016-11-07 21:40] VITALS: BP 127/78
== END 2016-11-07 21:57 | disposition home or self-care (01) ==
LOC: EME 18:50
PROVIDERS: Emergency Medicine
DX: R33.9 Retention of urine, unspecified (principal); N19 Unspecified kidney failure; C61 Malignant neoplasm of prostate; E11.9 Type 2 diabetes mellitus without complications; I10 Essential (primary) hypertension; I25.2 Old myocardial infarction; Z86.73 Personal history of transient ischemic attack (TIA), and cerebral infarction without residual deficits; Z95.1 Presence of aortocoronary bypass graft
CPT/HCPCS: 80048; 81003

== ENCOUNTER 2016-12-16 18:47 | Emergency (ER) | payer OTHER ==
[~2016-12-16] VITALS: Ht 170.2 cm; Wt 63.1 kg
[2016-12-16 21:25] LABS: EOSINOPHIL (%) 1.1 % (0-5); HEMATOCRIT 26.5 % (38.0-50.0); IMMATURE GRANULOCYTE (%) 0.7 % (0.0-0.7); LYMPHOCYTE COUNT 0.5 K/uL (1.0-2.8); MCH 30.1 PG (29.0-34.0); MCHC 32.1 G/DL (30.0-36.0); MEAN PLAT.VOLUME 9.8 uM^3 (9.0-12.4); MONOCYTE (%) 8.2 % (3-12); MONOCYTE COUNT 0.2 K/uL (0-0.8); NRBC (%) 0.7 /100 WBC (0-0); RBC DIS.WIDTH-SD 64.7 % (39-53); RED BLOOD COUNT 2.82 M/uL (4.00-5.50); WHITE BLOOD COUNT 2.8 K/uL (4.1-10.2)
[2016-12-16 21:32] LABS: PLATELET COUNT 105 K/uL (156-360)
[2016-12-16 21:37] LABS: CHLORIDE 99 mEq/L (99-109); POTASSIUM 4.8 mEq/L (3.7-5.4); SODIUM 129 mEq/L (136-147)
[2016-12-16 21:39] LABS: GLUCOSE 162 mg/dL (70-99)
[2016-12-16 21:40] LABS: ANION GAP 10 MEQ/L (2-14)
[2016-12-16 21:43] LABS: GFR ESTIMATE (CALCULATED) > 59 mL/min/
[2016-12-16 21:44] LABS: UREA NITROGEN (BUN) 25 mg/dL (9-23)
[2016-12-16 22:13] LABS: INTER. NORMALIZED RATIO 1.1; PROTHROMBIN TIME 11.7 (9.2-11.2); PTT 33.1 (25-32)
[2016-12-16 23:46] LABS: ADD MIUA? YES; BILIRUBIN NEGATIVE; BLOOD LARGE; COLOR YELLOW ((YELLOW)); GLUCOSE (STRIP) NEGATIVE; KETONES NEGATIVE; LEUKOCYTES LARGE; NITRITE POSITIVE; PROTEIN (STRIP) 30; SPECIFIC GRAVITY 1.012 (1.000-1.030)
[2016-12-17 00:10] LABS: BACTERIA 2+ /HPF; CASTS NONE SEEN /LPF; CRYSTALS NONE SEEN; EPITHELIAL CELLS RARE /HPF; RED BLOOD CELLS TNTC /HPF (0-5); UCUL ADDED? YES; WHITE BLOOD CELLS TNTC /HPF (0-5)
[2016-12-17 00:11] LABS: MUCUS RARE /LPF
[2016-12-17] MEDS ORDERED: BACTRIM,SEPT1 TABLET PO (00:29)
[2016-12-17 01:19] VITALS: BP 134/90
== END 2016-12-17 01:25 | disposition home or self-care (01) ==
LOC: EME 18:47
PROVIDERS: Emergency Medicine
DX: S12.501A Unspecified nondisplaced fracture of sixth cervical vertebra, initial encounter for closed fracture (principal); N39.0 Urinary tract infection, site not specified; C61 Malignant neoplasm of prostate; W18.30XA Fall on same level, unspecified, initial encounter; Y92.238 Other place in hospital as the place of occurrence of the external cause; R51 Headache; M25.511 Pain in right shoulder; M25.521 Pain in right elbow; E11.9 Type 2 diabetes mellitus without complications; I10 Essential (primary) hypertension; I25.2 Old myocardial infarction; Z86.73 Personal history of transient ischemic attack (TIA), and cerebral infarction without residual deficits; Z95.1 Presence of aortocoronary bypass graft
CPT/HCPCS: 70450; 71010; 72125; 73030; 73080; 73564; 80048; 81003; 85025; 85610; 85730; 87077; 87086 GA; 87147; 87186; 99281; 99285

== ENCOUNTER 2016-12-26 20:58 | Inpatient (IN) | payer OTHER ==
[~2016-12-26] VITALS: Ht 170.2 cm; Wt 63.1 kg
[2016-12-26 21:46] LABS: HEMATOCRIT 23.1 % (38.0-50.0); MCH 30.6 PG (29.0-34.0); MCHC 33.8 G/DL (30.0-36.0); MCV 90.6 FL (86-99); MEAN PLAT.VOLUME 10.2 uM^3 (9.0-12.4); PLATELET COUNT 100 K/uL (156-360); RBC DIS.WIDTH-CV 17.6 % (11.8-14.6); RBC DIS.WIDTH-SD 58.6 % (39-53); RED BLOOD COUNT 2.55 M/uL (4.00-5.50); WHITE BLOOD COUNT 3.8 K/uL (4.1-10.2)
[2016-12-26 22:06] LABS: CHLORIDE 95 mEq/L (99-109); POTASSIUM 4.9 mEq/L (3.7-5.4); SODIUM 120 mEq/L (136-147)
[2016-12-26 22:08] LABS: GLUCOSE 168 mg/dL (70-99)
[2016-12-26 22:09] LABS: ANION GAP 9 MEQ/L (2-14)
[2016-12-26 22:12] LABS: ALKALINE PHOSPHATASE 487 IU/L (3-129); GFR ESTIMATE (CALCULATED) > 59 mL/min/
[2016-12-26 22:13] LABS: UREA NITROGEN (BUN) 30 mg/dL (9-23)
[2016-12-27 01:47] LABS: ADD MIUA? YES; BILIRUBIN NEGATIVE; BLOOD MODERATE; COLOR YELLOW ((YELLOW)); GLUCOSE (STRIP) NEGATIVE; KETONES NEGATIVE; LEUKOCYTES LARGE; NITRITE NEGATIVE; PROTEIN (STRIP) 30; UROBILINOGEN 0.2 MG/DL (0.2-1.0)
[2016-12-27 01:58] LABS: BACTERIA RARE /HPF; EPITHELIAL CELLS RARE /HPF; MUCUS TRACE /LPF; RED BLOOD CELLS 20-30 /HPF (0-5); UCUL ADDED? YES; WHITE BLOOD CELLS TNTC /HPF (0-5); WHITE BLOOD CELLS CLUMP MOD /HPF (0-5)
[2016-12-27 02:39] LABS: LIPASE 20 U/L (1.0-51.0)
[2016-12-27 03:21] LABS: INTER. NORMALIZED RATIO 1.2; PROTHROMBIN TIME 12.5 (9.2-11.2); PTT 39.1 (25-32)
[2016-12-27 03:30] LABS: TROP-I INTERPRETATION NEGATIVE; TROPONIN-I < 0.01 ng/mL (0.0-0.30)
[2016-12-27 03:32] VITALS: BP 93/62
[2016-12-27 03:55] VITALS: BP 135/47
[2016-12-27 04:36] VITALS: BP 148/70
[2016-12-27] MEDS ORDERED: LASIX40 MG PO (08:28)
[2016-12-27 12:08] LABS: POINT-OF-CARE METER ID UU13113747
[2016-12-27 18:59] VITALS: BP 107/68
[2016-12-27 22:02] LABS: POINT-OF-CARE METER ID UU13113725
[2016-12-27 23:23] VITALS: BP 124/58
[2016-12-28 06:37] LABS: HEMATOCRIT 26.8 % (38.0-50.0); MCH 30.8 PG (29.0-34.0); MCHC 33.6 G/DL (30.0-36.0); MCV 91.8 FL (86-99); MEAN PLAT.VOLUME 9.5 uM^3 (9.0-12.4); PLATELET COUNT 101 K/uL (156-360); RBC DIS.WIDTH-CV 18.3 % (11.8-14.6); RBC DIS.WIDTH-SD 61.1 % (39-53); RED BLOOD COUNT 2.92 M/uL (4.00-5.50); WHITE BLOOD COUNT 3.6 K/uL (4.1-10.2)
[2016-12-28 07:10] LABS: ALKALINE PHOSPHATASE 421 IU/L (3-129); ANION GAP 10 MEQ/L (2-14); CHLORIDE 101 MEQ/L (99-109); GFR ESTIMATE (CALCULATED) > 59 mL/min/; POTASSIUM 4.5 MEQ/L (3.7-5.4); SAMPLE HEMOLYSIS CHECK 0; SAMPLE ICTERIC CHECK 0; SAMPLE LIPEMIA CHECK 0; TOTAL BILIRUBIN 1.5 MG/DL (0.0-1.0); UREA NITROGEN (BUN) 25 mg/dL (9-23)
[2016-12-28 07:15] LABS: GLUCOSE 35 mg/dL (70-99); SODIUM 130 MEQ/L (136-147)
[2016-12-28 08:18] VITALS: BP 121/70
[2016-12-28 18:24] VITALS: BP 117/78
[2016-12-29 00:57] VITALS: BP 116/71
[2016-12-29 06:05] LABS: HEMATOCRIT 25.6 % (38.0-50.0); MCH 30.4 PG (29.0-34.0); MCHC 33.2 G/DL (30.0-36.0); MCV 91.4 FL (86-99); MEAN PLAT.VOLUME 8.9 uM^3 (9.0-12.4); PLATELET COUNT 86 K/uL (156-360); RBC DIS.WIDTH-CV 17.8 % (11.8-14.6); RBC DIS.WIDTH-SD 59.7 % (39-53); WHITE BLOOD COUNT 3.4 K/uL (4.1-10.2)
[2016-12-29 06:16] LABS: POINT-OF-CARE METER ID UU13113725
[2016-12-29 07:03] VITALS: BP 123/72
[2016-12-29 16:00] VITALS: BP 121/71
[2016-12-29 21:05] LABS: POINT-OF-CARE METER ID UU13113725
[2016-12-29 22:49] VITALS: BP 117/69
[2016-12-30 06:05] LABS: POINT-OF-CARE METER ID UU13113725
[2016-12-30 06:17] LABS: HEMATOCRIT 25.7 % (38.0-50.0); MCH 30.1 PG (29.0-34.0); MCHC 32.3 G/DL (30.0-36.0); MCV 93.1 FL (86-99); MEAN PLAT.VOLUME 9.7 uM^3 (9.0-12.4); NRBC (%) 0.9 /100 WBC (0-0); PLATELET COUNT 94 K/uL (156-360); RBC DIS.WIDTH-SD 60.7 % (39-53); RED BLOOD COUNT 2.76 M/uL (4.00-5.50); WHITE BLOOD COUNT 3.2 K/uL (4.1-10.2)
[2016-12-30 06:45] VITALS: BP 117/68
[2016-12-30 15:00] VITALS: BP 119/65
[2016-12-30 22:35] VITALS: BP 131/80
[2016-12-31 06:30] LABS: HEMATOCRIT 27.3 % (38.0-50.0); MCH 30.4 PG (29.0-34.0); MCHC 32.6 G/DL (30.0-36.0); MCV 93.2 FL (86-99); MEAN PLAT.VOLUME 10.6 uM^3 (9.0-12.4); NRBC (%) 0.6 /100 WBC (0-0); PLATELET COUNT 116 K/uL (156-360); RBC DIS.WIDTH-CV 18.2 % (11.8-14.6); RBC DIS.WIDTH-SD 61.7 % (39-53); RED BLOOD COUNT 2.93 M/uL (4.00-5.50); WHITE BLOOD COUNT 3.6 K/uL (4.1-10.2)
[2016-12-31 06:50] LABS: ALKALINE PHOSPHATASE 475 IU/L (3-129); ANION GAP 9 MEQ/L (2-14); CHLORIDE 102 MEQ/L (99-109); GFR ESTIMATE (CALCULATED) > 59 mL/min/; GLUCOSE 45 mg/dL (70-99); POTASSIUM 5.1 MEQ/L (3.7-5.4); SAMPLE HEMOLYSIS CHECK 0; SAMPLE ICTERIC CHECK 0; SAMPLE LIPEMIA CHECK 0; SODIUM 130 MEQ/L (136-147); TOTAL BILIRUBIN 1.4 MG/DL (0.0-1.0); UREA NITROGEN (BUN) 27 mg/dL (9-23)
[2016-12-31 07:14] LABS: POINT-OF-CARE METER ID UU13113725
[2016-12-31 08:31] VITALS: BP 129/81
[2016-12-31 12:41] LABS: POINT-OF-CARE METER ID UU13113725
[2016-12-31 16:00] VITALS: BP 131/77
[2016-12-31 16:51] LABS: POINT-OF-CARE METER ID UU13113725
[2016-12-31 20:59] VITALS: BP 132/78
[2016-12-31 21:56] LABS: POINT-OF-CARE USER ID AHSUCEG
[2017-01-01] VITALS: BP 135/85
[2017-01-01 08:26] VITALS: BP 161/79
[2017-01-01 08:34] VITALS: BP 128/73
[2017-01-01 16:10] VITALS: BP 133/78
== END 2017-01-01 17:44 | DRG 690 ==
LOC: EME 20:58 → EDOF 12-27 02:30 → 5EAST 12-27 02:30 → EDOF 12-27 09:50 → 5EAST 12-27 14:59
PROVIDERS: Emergency Medicine; Internal Medicine
DX: N39.0 Urinary tract infection, site not specified (principal); E87.1 Hypo-osmolality and hyponatremia; D61.818 Other pancytopenia; C79.51 Secondary malignant neoplasm of bone; E11.22 Type 2 diabetes mellitus with diabetic chronic kidney disease; C61 Malignant neoplasm of prostate; J32.2 Chronic ethmoidal sinusitis; N18.3 Chronic kidney disease, stage 3 (moderate); G62.9 Polyneuropathy, unspecified; D63.8 Anemia in other chronic diseases classified elsewhere; I12.9 Hypertensive chronic kidney disease with stage 1 through stage 4 chronic kidney disease, or unspecified chronic kidney disease; E86.0 Dehydration; I25.10 Atherosclerotic heart disease of native coronary artery without angina pectoris; I25.2 Old myocardial infarction; Z86.73 Personal history of transient ischemic attack (TIA), and cerebral infarction without residual deficits; I25.5 Ischemic cardiomyopathy; K21.9 Gastro-esophageal reflux disease without esophagitis; Z86.718 Personal history of other venous thrombosis and embolism; Z79.01 Long term (current) use of anticoagulants; I25.810 Atherosclerosis of coronary artery bypass graft(s) without angina pectoris; K62.89 Other specified diseases of anus and rectum; N47.2 Paraphimosis; R29.6 Repeated falls; R62.7 Adult failure to thrive; Z51.5 Encounter for palliative care; Z79.4 Long term (current) use of insulin; Z86.72 Personal history of thrombophlebitis; Z91.19 Patient's noncompliance with other medical treatment and regimen; Z95.810 Presence of automatic (implantable) cardiac defibrillator; G89.29 Other chronic pain; M54.5 Low back pain; R31.9 Hematuria, unspecified; R74.8 Abnormal levels of other serum enzymes; R90.82 White matter disease, unspecified; S12.500D Unspecified displaced fracture of sixth cervical vertebra, subsequent encounter for fracture with routine healing; W19.XXXD Unspecified fall, subsequent encounter
CPT/HCPCS: 70450; 71010; 80053; 81003; 82948; 83690; 84484; 85027; 85610; 85730; 86900; 86901; 86920; 87086; 93005; 99281; 99285; J0696; J1650; J1815; J7030; J7050; P9016

== ENCOUNTER 2017-01-22 09:03 | Emergency (ER) | payer OTHER ==
[~2017-01-22] VITALS: Ht 177.8 cm; Wt 74.7 kg
[~2017-01-22 09:03] MED LIST changes: +BASAGLAR K100 UNIT/1 SC; +PRILOSEC20 MG PO
[2017-01-22 10:28] LABS: HEMATOCRIT 33.3 % (38.0-50.0); MCH 29.3 PG (29.0-34.0); MCHC 32.7 G/DL (30.0-36.0); MCV 89.5 FL (86-99); NRBC (%) 1.2 /100 WBC (0-0); RBC DIS.WIDTH-CV 17.6 % (11.8-14.6); RBC DIS.WIDTH-SD 56.9 % (39-53); WHITE BLOOD COUNT 4.1 K/uL (4.1-10.2)
[2017-01-22 10:34] LABS: CHLORIDE 101 mEq/L (99-109); POTASSIUM 5.9 mEq/L (3.7-5.4); SODIUM 133 mEq/L (136-147)
[2017-01-22 10:37] LABS: ANION GAP 11 MEQ/L (2-14)
[2017-01-22 10:39] LABS: GLUCOSE 7 mg/dL (70-99)
[2017-01-22 10:40] LABS: GFR ESTIMATE (CALCULATED) > 59 mL/min/; UREA NITROGEN (BUN) 39 mg/dL (9-23)
[2017-01-22 10:44] LABS: TROP-I INTERPRETATION NEGATIVE; TROPONIN-I 0.03 ng/mL (0.0-0.30)
[2017-01-22 11:00] LABS: RED BLOOD COUNT 3.72 M/uL (4.00-5.50)
[2017-01-22 11:29] LABS: HEMATOLOGY COMMENT 1 SMEAR COMPATIBLE; IMM.PLATELET FRACTION 5.7 (1-7); MEAN PLAT.VOLUME 11.7 uM^3 (9.0-12.4); PLAT.SUFFICIENCY DECREASED
[2017-01-22 11:30] LABS: PLATELET COUNT 34 K/uL (156-360)
[2017-01-22 15:31] VITALS: BP 000/00
== END 2017-01-22 10:20 ==
LOC: EME → EDBD 09:03 → EME 10:20
PROVIDERS: Emergency Medicine
DX: I95.9 Hypotension, unspecified (principal); R06.02 Shortness of breath; C61 Malignant neoplasm of prostate; C79.9 Secondary malignant neoplasm of unspecified site; R41.82 Altered mental status, unspecified; Z66 Do not resuscitate; I10 Essential (primary) hypertension; I50.9 Heart failure, unspecified; E11.9 Type 2 diabetes mellitus without complications; Z79.4 Long term (current) use of insulin; Z95.0 Presence of cardiac pacemaker; Z95.1 Presence of aortocoronary bypass graft
CPT/HCPCS: 80048; 81003; 84484; 85027; 87040; 93005; 99281; 99285